=== PATIENT | female | born 1935 | race Caucasian/White ===

== ENCOUNTER 2016-09-24 21:10 | Emergency (ER) | payer MEDICARE, OTHER ==
[~2016-09-24] VITALS: Ht 167.6 cm; Wt 72.9 kg
[2016-09-24] MEDS ORDERED: PANTOPRAZOLE 40 MG IV IVPush STA (21:51)
[2016-09-24] MEDS ORDERED: ONDANSETRON 2MG/ML, 2ML IVPush ONE (22:00)
[2016-09-24] MEDS ORDERED: SODIUM CHLORIDE 0.9% 1,000ML IVBOLUS ONE (22:00)
[2016-09-24] MEDS ORDERED: ONDANSETRON 2MG/ML, 2ML ONE (22:14)
[2016-09-24] MEDS ORDERED: PANTOPRAZOLE 40 MG IV ONE (22:14)
[2016-09-24 23:25] LABS: ASPARTATE AMINO TRANSFERASE 33 U/L (15-37); BLOOD UREA NITROGEN 16 mg/dL (7-18)
[2016-09-24] MEDS ORDERED: LISI1TAB5 PO (23:35)
[2016-09-24] MEDS ORDERED: LEVO125T5 PO (23:36)
[2016-09-24] MEDS ORDERED: AMIT10TA PO (23:36)
[2016-09-24] MEDS ORDERED: ATOR20TA9 PO (23:37)
[2016-09-24] MEDS ORDERED: DEXL60CA PO (23:37)
[2016-09-25 00:47] VITALS: BP 136/81
== END 2016-09-25 00:50 | disposition home or self-care (01) ==
LOC: ED 23:59
DX: K21.0 Gastro-esophageal reflux disease with esophagitis (principal); T18.128A Food in esophagus causing other injury, initial encounter; E03.9 Hypothyroidism, unspecified; E78.00 Pure hypercholesterolemia, unspecified; I10 Essential (primary) hypertension; X58.XXXA Exposure to other specified factors, initial encounter; Y93.89 Activity, other specified; Y92.89 Other specified places as the place of occurrence of the external cause; Y99.9 Unspecified external cause status
CPT/HCPCS: 36415; 80053; 83690; 85025; 96361; 96374; 96375; 99284; C9113; J2405; J7030

== ENCOUNTER 2017-03-08 16:20 | Emergency (ER) | payer MEDICARE, OTHER ==
[~2017-03-08] VITALS: Ht 167.6 cm; Wt 76.8 kg
[~2017-03-08 16:20] MED LIST: AMIT10TA PO; ATOR20TA9 PO; DEXL60CA2 PO; LEVO125T5 PO; LISI1TAB5 PO
[2017-03-08] MEDS ORDERED: KETOROLAC 30 MG/1 ML ONE (17:13)
[2017-03-08] MEDS ORDERED: KETOROLAC 30 MG/1 ML IM ONE (17:30)
[2017-03-08 17:45] LABS: HEMATOCRIT 45.5 % (34.6-47.8); HEMOGLOBIN 15.3 g/dL (11.7-16.4); WHITE BLOOD COUNT 7.6 x10^3/uL (3.4-10)
[2017-03-08 17:51] LABS: BLOOD UREA NITROGEN 16 mg/dL (7-18)
[2017-03-08 19:58] VITALS: BP 192/87
== END 2017-03-08 21:09 | disposition home or self-care (01) ==
LOC: ED 17:39
DX: R51 Headache (principal); J01.00 Acute maxillary sinusitis, unspecified; I10 Essential (primary) hypertension; K21.9 Gastro-esophageal reflux disease without esophagitis; E78.00 Pure hypercholesterolemia, unspecified; E03.9 Hypothyroidism, unspecified
CPT/HCPCS: 36415; 70450; 80048; 82040; 85025; 93005; 96372; 99285; J1885

== ENCOUNTER → 2018-02-03 | Outpatient (CLI) | payer MEDICARE, OTHER ==
[~2018-02-03] MED LIST changes: +OMNIPAQUE 350 MG/ML, 100ML BOTTLE ONE
== END | disposition home or self-care (01) ==
LOC: RAD 10:42
PROVIDERS: ATTEND Internal Medicine Gastroenterology
DX: K57.30 Diverticulosis of large intestine without perforation or abscess without bleeding (principal); Z90.49 Acquired absence of other specified parts of digestive tract; Z90.710 Acquired absence of both cervix and uterus
CPT/HCPCS: 74177; Q9967